=== PATIENT | male | born 1940 | race African-American/Black ===

== ENCOUNTER 2019-11-05 11:20 | Inpatient (IN) ==
[2019-11-05] MEDS ORDERED: ONDANSETRON 4 MG/2 ML VIAL IV STA (11:44)
[2019-11-05] MEDS ORDERED: SODIUM CHLORIDE 0.9% 500 ML IV STA (11:44)
[2019-11-05] MEDS ORDERED: PANTOPRAZOLE 40 MG VIAL IV STA (11:44)
[2019-11-05 11:54] LABS: Basophils % 0.2 % (0.0-0.8); Hematocrit 33.4 VOL% (42.0-52.0); Hemoglobin 10.6 GM/DL (14.0-18.0); Immature Granulocytes % 0.7 %; Immature Granulocytes Absolute 0.12 #; Lymphocytes # 0.9 10*3/uL (1.4-4.0); Lymphocytes % 5.2 % (21.2-54.2); Mean Corpuscular HGB Conc 31.7 GM/DL (32-36); Mean Corpuscular Volume 103.1 FL (87-102); Mean Platelet Volume 12.7 FL (9.6-12.0); Monocytes % 4.3 % (1.7-12.7); Neutrophils % 89.6 % (38.7-73.9); Platelet Count 125 T/CUMM (130-400); Red Blood Count 3.24 MC/CUMM (3.8-5.5); Red Cell Distribution Width 11.6 % (9.3-17.3); White Blood Count 17.9 T/CUMM (4-12)
[2019-11-05 12:24] LABS: Albumin 3.4 G/DL (3.4-5.0); Bilirubin,Total 0.7 MG/DL (0.2-1.0); Calcium 8.4 MG/DL (8.5-10.1); Osmolality,Calculated 287.4 MOS/KG (273-304); Total Protein 5.9 G/DL (6.4-8.3)
[2019-11-05 12:38] LABS: PT Patient Result 11.1 SECS (9.6-12.2); Partial Thromboplastin Time < 21.0 SECS (20.8-36.0)
[2019-11-05] MEDS ORDERED: ACETAMINOPHEN 325 MG TABLET PO PRN (14:02)
[2019-11-05] MEDS ORDERED: ONDANSETRON 4 MG/2 ML VIAL IV PRN (14:02)
[2019-11-05] MEDS ORDERED: ALBUTEROL/IPRATROPIUM 3 ML NEB RESP TX PRN (16:01)
[2019-11-05 17:16] LABS: Hematocrit 29.2 VOL% (42.0-52.0); Hemoglobin 9.3 GM/DL (14.0-18.0)
[2019-11-05] MEDS: cefTRIAXone 1,000 MG in SYRINGE 1 EACH IV SCH (17:34)
[2019-11-05] MEDS: SODIUM CHLORIDE 0.9% 1,000 ML IV SCH (17:36)
[2019-11-05] MEDS: AZITHROMYCIN INJ 500 MG in SODIUM CHLORIDE 0.9% 250 ML IV SCH (17:37)
[2019-11-05] MEDS: METOPROLOL SUCCINATE XL 25 MG TABLET PO SCH (17:37)
[2019-11-05] MEDS ORDERED: ATORVASTATIN 20 MG TABLET PO SCH (18:00)
[2019-11-05] MEDS: ATORVASTATIN 20 MG TABLET PO SCH (21:19)
[2019-11-05] MEDS: BENZONATATE 100 MG CAPSULE PO SCH (21:19)
[2019-11-05] MEDS: PANTOPRAZOLE 40 MG VIAL IV SCH (21:19)
[2019-11-05] MEDS: guaiFENesin/DM ER 600-30 MG TABLET PO SCH (21:19)
[2019-11-05 22:33] LABS: Hemoglobin 7.7 GM/DL (14.0-18.0)
[2019-11-06] MEDS: SODIUM CHLORIDE 0.9% 1,000 ML IV SCH ×3 (02:16→21:30)
[2019-11-06 05:33] LABS: Hemoglobin 6.7 GM/DL (14.0-18.0)
[2019-11-06 05:35] LABS: Basophils % 0.4 % (0.0-0.8); Eosinophils % 0.1 % (0.00-10.9); Hematocrit 21.3 VOL% (42.0-52.0); Hemoglobin 6.7 GM/DL (14.0-18.0); Immature Granulocytes % 0.6 %; Immature Granulocytes Absolute 0.07 #; Lymphocytes # 1.9 10*3/uL (1.4-4.0); Lymphocytes % 16.9 % (21.2-54.2); Mean Corpuscular HGB Conc 31.5 GM/DL (32-36); Mean Corpuscular Volume 104.9 FL (87-102); Mean Platelet Volume 13.1 FL (9.6-12.0); Monocytes % 8.3 % (1.7-12.7); Neutrophils % 73.7 % (38.7-73.9); Platelet Count 100 T/CUMM (130-400); Red Blood Count 2.03 MC/CUMM (3.8-5.5); Red Cell Distribution Width 11.8 % (9.3-17.3); White Blood Count 11.2 T/CUMM (4-12)
[2019-11-06 05:57] LABS: Hypochromasia 2+; Platelet Estimate Decreased
[2019-11-06] MEDS ORDERED: SODIUM CHLORIDE 0.9% 1,000 ML IV PRN (06:06)
[2019-11-06 07:56] LABS: Calcium 7.9 MG/DL (8.5-10.1); Osmolality,Calculated 284.5 MOS/KG (273-304)
[2019-11-06 08:00] LABS: ABG Base Excess -2.1 MMOL/L (-2.5-2.5); ABG HCO3 22.7 MMOL/L (20-26); ABG Oxygen Saturation 99.7 % (95-100); ABG PCO2 36.9 MM HG (35-48); ABG PH 7.393 (7.35-7.45); ABG TCO2 21.2 MMOL/L (23-27); Allen Test Positive
[2019-11-06] MEDS: BENZONATATE 100 MG CAPSULE PO SCH ×3 (09:06→20:21)
[2019-11-06 09:47] LABS: Osmolality,Calculated 287.3 MOS/KG (273-304)
[2019-11-06] MEDS: PANTOPRAZOLE 40 MG VIAL IV SCH ×2 (09:59→20:22)
[2019-11-06] MEDS ORDERED: LIDOCAINE 2% 5 ML VIAL ONE (10:00)
[2019-11-06] MEDS ORDERED: propofoL 200 MG/20 ML VIAL IV ONE (10:00)
[2019-11-06 10:09] LABS: Troponin I 0.054 NG/ML (0.00-0.045)
[2019-11-06] MEDS: LACTATED RINGERS 1,000 ML IV SCH (11:04)
[2019-11-06] MEDS: METOPROLOL SUCCINATE XL 25 MG TABLET PO SCH (11:54)
[2019-11-06] MEDS: guaiFENesin/DM ER 600-30 MG TABLET PO SCH ×2 (11:54→20:22)
[2019-11-06] MEDS: ASPIRIN EC 81 MG TABLET PO SCH (13:16)
[2019-11-06 14:41] LABS: Hematocrit 28.3 VOL% (42.0-52.0)
[2019-11-06 15:07] LABS: Troponin I 0.257 NG/ML (0.00-0.045)
[2019-11-06] MEDS ORDERED: ALUM/MAG/SIMETH/LIDO VISC 1:1 30 ML BOTTLE PO ONE (15:13)
[2019-11-06 17:10] LABS: Troponin I 0.327 NG/ML (0.00-0.045)
[2019-11-06] MEDS: AZITHROMYCIN INJ 500 MG in SODIUM CHLORIDE 0.9% 250 ML IV SCH (17:41)
[2019-11-06] MEDS: cefTRIAXone 1,000 MG in SYRINGE 1 EACH IV SCH (17:41)
[2019-11-06] MEDS: ATORVASTATIN 20 MG TABLET PO SCH (20:50)
[2019-11-07 04:20] LABS: Basophils # 0.1 10*3/uL (0.0-0.2); Basophils % 0.6 % (0.0-0.8); Eosinophils # 0.1 10*3/uL (0.0-0.87); Eosinophils % 0.7 % (0.00-10.9); Hematocrit 25.8 VOL% (42.0-52.0); Hemoglobin 8.1 GM/DL (14.0-18.0); Immature Granulocytes % 0.9 %; Immature Granulocytes Absolute 0.09 #; Lymphocytes # 1.3 10*3/uL (1.4-4.0); Lymphocytes % 12.7 % (21.2-54.2); Mean Corpuscular HGB Conc 31.4 GM/DL (32-36); Mean Corpuscular Volume 95.9 FL (87-102); NRBC # 0.02 10*3/uL; Neutrophils % 77.1 % (38.7-73.9); Red Blood Count 2.69 MC/CUMM (3.8-5.5); Red Cell Distribution Width 17.6 % (9.3-17.3); White Blood Count 10.5 T/CUMM (4-12)
[2019-11-07 04:27] LABS: Platelet Count 78 T/CUMM (130-400)
[2019-11-07 04:29] LABS: Calcium 7.8 MG/DL (8.5-10.1)
[2019-11-07 04:43] LABS: Hypochromasia 1+; Platelet Estimate Decreased
[2019-11-07] MEDS: SODIUM CHLORIDE 0.9% 1,000 ML IV SCH ×2 (07:30→17:30)
[2019-11-07] MEDS: LACTATED RINGERS 1,000 ML IV SCH (08:40)
[2019-11-07] MEDS: PANTOPRAZOLE 40 MG VIAL IV SCH ×2 (09:02→21:48)
[2019-11-07] MEDS: METOPROLOL SUCCINATE XL 25 MG TABLET PO SCH (09:02)
[2019-11-07] MEDS: guaiFENesin/DM ER 600-30 MG TABLET PO SCH ×3 (09:02→21:51)
[2019-11-07] MEDS: ASPIRIN EC 81 MG TABLET PO SCH (09:02)
[2019-11-07] MEDS: BENZONATATE 100 MG CAPSULE PO SCH ×4 (09:02→21:51)
[2019-11-07] MEDS ORDERED: ALUM/MAG/SIMETH/LIDO VISC 1:1 30 ML BOTTLE PO ONE (10:50)
[2019-11-07] MEDS ORDERED: BISACODYL 5 MG TABLET PO ONE (12:00)
[2019-11-07 12:11] LABS: Hematocrit 24.8 VOL% (42.0-52.0)
[2019-11-07] MEDS ORDERED: POLYETHYLENE GLYCOL POWDER 255 GM BOTTLE PO ONE (15:00)
[2019-11-07] MEDS: cefTRIAXone 1,000 MG in SYRINGE 1 EACH IV SCH (16:49)
[2019-11-07] MEDS: AZITHROMYCIN 250 MG TABLET PO SCH (16:49)
[2019-11-07 20:43] LABS: Hematocrit 25.6 VOL% (42.0-52.0)
[2019-11-07] MEDS ORDERED: MAGNESIUM CITRATE 300 ML BOTTLE PO ONE (21:00)
[2019-11-07] MEDS: ATORVASTATIN 20 MG TABLET PO SCH (21:47)
[2019-11-08] MEDS: SODIUM CHLORIDE 0.9% 1,000 ML IV SCH ×3 (03:52→22:55)
[2019-11-08 04:48] LABS: Basophils % 0.5 % (0.0-0.8); Eosinophils # 0.2 10*3/uL (0.0-0.87); Eosinophils % 2.5 % (0.00-10.9); Hematocrit 24.2 VOL% (42.0-52.0); Hemoglobin 7.6 GM/DL (14.0-18.0); Immature Granulocytes % 0.5 %; Immature Granulocytes Absolute 0.04 #; Lymphocytes # 1.3 10*3/uL (1.4-4.0); Lymphocytes % 15.3 % (21.2-54.2); Mean Corpuscular HGB Conc 31.4 GM/DL (32-36); Mean Corpuscular Volume 97.6 FL (87-102); Mean Platelet Volume 13.1 FL (9.6-12.0); Monocytes % 8.7 % (1.7-12.7); NRBC # 0.04 10*3/uL; Neutrophils % 72.5 % (38.7-73.9); Platelet Count 85 T/CUMM (130-400); Red Blood Count 2.48 MC/CUMM (3.8-5.5); White Blood Count 8.6 T/CUMM (4-12)
[2019-11-08 05:01] LABS: INR 1.1; PT Patient Result 11.4 SECS (9.6-12.2)
[2019-11-08 05:14] LABS: Band Neutrophils 1 % (0-10); Lymphocytes 10 % (20-55); Polychromasia Slight; Segmented Neutrophils 82 % (50-85); Total Cells Counted 100
[2019-11-08 05:15] LABS: Macrocytosis Slight; Platelet Estimate Decreased
[2019-11-08 05:25] LABS: Calcium 7.9 MG/DL (8.5-10.1); Osmolality,Calculated 276.4 MOS/KG (273-304)
[2019-11-08] MEDS ORDERED: NITROGLYCERIN 6.5 MG PO SCH (08:15)
[2019-11-08] MEDS: PANTOPRAZOLE 40 MG VIAL IV SCH ×2 (09:39→20:08)
[2019-11-08] MEDS ORDERED: propofoL 200 MG/20 ML VIAL IV ONE (10:00)
[2019-11-08] MEDS ORDERED: ETOMIDATE 20 MG/10 ML VIAL IV ONE (10:00)
[2019-11-08] MEDS ORDERED: LIDOCAINE 2% 5 ML VIAL ONE (10:00)
[2019-11-08] MEDS: LACTATED RINGERS 1,000 ML IV SCH (12:50)
[2019-11-08] MEDS: BENZONATATE 100 MG CAPSULE PO SCH ×3 (14:38→20:10)
[2019-11-08] MEDS: guaiFENesin/DM ER 600-30 MG TABLET PO SCH ×2 (16:06→20:10)
[2019-11-08] MEDS ORDERED: MAGNESIUM CITRATE 300 ML BOTTLE PO ONE (18:00)
[2019-11-08] MEDS: ASPIRIN EC 81 MG TABLET PO SCH (18:17)
[2019-11-08] MEDS: AZITHROMYCIN 250 MG TABLET PO SCH (18:30)
[2019-11-08] MEDS: METOPROLOL SUCCINATE XL 25 MG TABLET PO SCH (18:30)
[2019-11-08] MEDS: cefTRIAXone 1,000 MG in SYRINGE 1 EACH IV SCH (18:31)
[2019-11-08] MEDS: ATORVASTATIN 20 MG TABLET PO SCH (20:10)
[2019-11-09 05:42] LABS: Basophils % 0.2 % (0.0-0.8); Calcium 7.7 MG/DL (8.5-10.1); Eosinophils # 0.3 10*3/uL (0.0-0.87); Eosinophils % 3.2 % (0.00-10.9); Hematocrit 22.9 VOL% (42.0-52.0); Hemoglobin 7.4 GM/DL (14.0-18.0); Immature Granulocytes % 0.7 %; Immature Granulocytes Absolute 0.06 #; Lymphocytes # 0.9 10*3/uL (1.4-4.0); Lymphocytes % 11.2 % (21.2-54.2); Mean Corpuscular HGB Conc 32.3 GM/DL (32-36); Mean Corpuscular Volume 95.8 FL (87-102); Mean Platelet Volume 12.9 FL (9.6-12.0); Neutrophils % 74.7 % (38.7-73.9); Osmolality,Calculated 277.3 MOS/KG (273-304); Platelet Count 99 T/CUMM (130-400); Red Blood Count 2.39 MC/CUMM (3.8-5.5); Red Cell Distribution Width 16.5 % (9.3-17.3); White Blood Count 8.2 T/CUMM (4-12)
[2019-11-09 06:31] LABS: Hypochromasia 2+; Ovalocytes Slight; Platelet Estimate Decreased
[2019-11-09 06:32] LABS: Macrocytosis Slight
[2019-11-09] MEDS ORDERED: SODIUM CHLORIDE 0.9% 1,000 ML IV PRN (08:25)
[2019-11-09] MEDS: SODIUM CHLORIDE 0.9% 1,000 ML IV SCH ×2 (09:26→15:58)
[2019-11-09] MEDS: guaiFENesin/DM ER 600-30 MG TABLET PO SCH ×2 (09:27→20:43)
[2019-11-09] MEDS: ASPIRIN EC 81 MG TABLET PO SCH (09:28)
[2019-11-09] MEDS: METOPROLOL SUCCINATE XL 25 MG TABLET PO SCH (09:28)
[2019-11-09] MEDS: POTASSIUM CHLORIDE 20 MEQ TABLET PO PRN ×3 (09:28→15:55)
[2019-11-09] MEDS: PANTOPRAZOLE 40 MG VIAL IV SCH ×2 (09:29→20:42)
[2019-11-09] MEDS: BENZONATATE 100 MG CAPSULE PO SCH ×3 (09:29→20:43)
[2019-11-09] MEDS: LACTATED RINGERS 1,000 ML IV SCH (15:55)
[2019-11-09] MEDS: AZITHROMYCIN 250 MG TABLET PO SCH (15:58)
[2019-11-09] MEDS: cefTRIAXone 1,000 MG in SYRINGE 1 EACH IV SCH (15:59)
[2019-11-09 18:33] LABS: Hematocrit 33.5 VOL% (42.0-52.0); Hemoglobin 10.6 GM/DL (14.0-18.0)
[2019-11-09] MEDS: ATORVASTATIN 20 MG TABLET PO SCH (20:43)
[2019-11-10 05:28] LABS: Basophils % 0.4 % (0.0-0.8); Eosinophils # 0.3 10*3/uL (0.0-0.87); Hemoglobin 9.8 GM/DL (14.0-18.0); Immature Granulocytes % 0.8 %; Immature Granulocytes Absolute 0.07 #; Lymphocytes # 0.9 10*3/uL (1.4-4.0); Lymphocytes % 9.6 % (21.2-54.2); Mean Corpuscular HGB Conc 31.6 GM/DL (32-36); Mean Corpuscular Volume 94.8 FL (87-102); Mean Platelet Volume 12.6 FL (9.6-12.0); Monocytes % 10.8 % (1.7-12.7); Neutrophils % 75.4 % (38.7-73.9); Platelet Count 106 T/CUMM (130-400); Red Blood Count 3.27 MC/CUMM (3.8-5.5); Red Cell Distribution Width 16.2 % (9.3-17.3)
[2019-11-10 05:54] LABS: Calcium 7.9 MG/DL (8.5-10.1); Osmolality,Calculated 279.3 MOS/KG (273-304)
[2019-11-10] MEDS: SODIUM CHLORIDE 0.9% 1,000 ML IV SCH ×2 (06:56→09:41)
[2019-11-10] MEDS ORDERED: MAGNESIUM HYDROXIDE SUSP 30 ML UDCUP PO ONE (09:29)
[2019-11-10] MEDS: PANTOPRAZOLE 40 MG VIAL IV SCH (09:36)
[2019-11-10] MEDS: BENZONATATE 100 MG CAPSULE PO SCH (09:36)
[2019-11-10] MEDS: METOPROLOL SUCCINATE XL 25 MG TABLET PO SCH (09:36)
[2019-11-10] MEDS: ASPIRIN EC 81 MG TABLET PO SCH (09:36)
[2019-11-10] MEDS: guaiFENesin/DM ER 600-30 MG TABLET PO SCH (09:36)
[2019-11-10 11:47] VITALS: BP 126/54
== END 2019-11-10 13:30 | disposition home or self-care (01) | DRG 377 ==
LOC: N.ED 11:20 → N.EDINP 14:02 → N.TELES 16:43 → N.CC 11-06 07:04 → N.5E 11-09 16:18
PROVIDERS: ADMIT Family Medicine; ATTEND Family Medicine